=== PATIENT | female | born 1975 | race Native Hawaiian/Other Pacific Islander ===

== ENCOUNTER 2019-11-09 20:19 | Observation (INO) | payer OTHER ==
[~2019-11-09] VITALS: Ht 162.6 cm; Wt 110.8 kg
[2019-11-09 20:30] VITALS: BP 144/92; TEMP 98.2
[2019-11-09 21:44] LABS: PLATELET COUNT 240 K/uL (152-353)
[2019-11-09 22:45] LABS: POTASSIUM 3.2 mmol/L (3.6-5.2); SODIUM 142 mmol/L (136-145)
[2019-11-09 23:40] VITALS: BP 122/65
[2019-11-10 01:17] VITALS: BP 119/73; TEMP 97.8; Ht 162.6 cm; Wt 110.8 kg
[2019-11-10] MEDS ORDERED: HYDR25TA60 PO (02:40)
[2019-11-10] MEDS ORDERED: LISI20TA11 PO (02:40)
[2019-11-10 04:00] VITALS: BP 114/58; TEMP 98.1
[2019-11-10] MEDS ORDERED: PANTOPRAZOLE 40MG TA PO (14:20)
== END 2019-11-10 15:12 | disposition home or self-care (01) ==
LOC: ED 20:19 → MED/SURG 23:27
PROVIDERS: ADMIT Hospitalist
DX: R07.89 Other chest pain (principal); I10 Essential (primary) hypertension; E66.8 Other obesity; E87.6 Hypokalemia; R60.0 Localized edema
CPT/HCPCS: 36415; 80053; 82550; 82553; 83880; 84443; 84484; 85027; 85379; 85610; 85730; 93005; 96374; 99220; 99284; G0378; J1650; J1940

== ENCOUNTER 2022-03-25 23:15 | Emergency (ER) | payer OTHER ==
[~2022-03-25] VITALS: Ht 165.1 cm; Wt 99.8 kg
[~2022-03-25 23:15] MED LIST: HYDR25TA60 PO; LISI20TA11 PO; PANTOPRAZOLE 40MG TA PO
[2022-03-26 01:10] LABS: POTASSIUM 3.7 mmol/L (3.6-5.2)
[2022-03-26 01:15] LABS: PLATELET COUNT 196 K/uL (152-353)
[2022-03-26 01:25] LABS: PARTIAL THROMBOPLASTIN TIME 20.9 SECONDS (24.5-33.6)
[2022-03-26 02:40] VITALS: BP 144/90; TEMP 99.5
== END 2022-03-26 02:40 | disposition home or self-care (01) ==
LOC: ED 23:15
PROVIDERS: Family Medicine
DX: R51.9 Headache, unspecified (principal); U07.1 COVID-19; I10 Essential (primary) hypertension
CPT/HCPCS: 36415; 80053; 82550; 84484; 85027; 85610; 85730; 87635; 87651; 93005; 96372; 99283; J1200; J1885; U0003

== ENCOUNTER 2023-01-03 09:32 | Outpatient (CLI) | payer OTHER | END 2023-01-03 18:54 | disposition home or self-care (01) | LOC: US 09:32 | PROVIDERS: ATTEND Nurse Practitioner Acute Care | DX: R51.9 Headache, unspecified (principal); I83.93 Asymptomatic varicose veins of bilateral lower extremities ==